=== PATIENT | female | born 1990 | race Caucasian/White ===

== ENCOUNTER → 2016-06-03 | Outpatient (CLI) | payer OTHER ==
[~2016-06-03] MED LIST: ACET50TA PO; IBUP80TA PO; PRENTAB31 PO
--- NOTE | 2016-06-03 11:39 | REP ---
HIDA SCAN WITH GALLBLADDER EJECTION FRACTION: Following the intravenous administration of 6.3 millicuries technetium 99m M mebrofenin, multiple images of the right upper quadrant are performed every 5 minutes for a period of 1 hour. The gallbladder is visualized at 15 minutes post injection and there is biliary to bowel transit at the same time, with no scintigraphic evidence of cholecystitis. At the 1-hour jeffrey, 8 ounce of Ensure Enlive was ingested and further imaging performed for 1 hour. Gallbladder activity is measured and the gallbladder ejection fraction is calculated to be 14%, which is below normal. Normal ejection fraction should be greater than 35%. IMPRESSION: No scintigraphic evidence of cholecystitis. Low gallbladder ejection fraction at 14%. Signed by Buster Fuentes MD 06/03/2016 07:39 P
== END ==
LOC: M RAD 08:37
PROVIDERS: ATTEND Physician Assistant
DX: R10.811 Right upper quadrant abdominal tenderness (principal)